=== PATIENT | female | born 1985 | race American Indian/Alaskan Native ===

== ENCOUNTER 2018-03-17 13:10 | Outpatient (CLI) | payer MEDICAID ==
[2018-03-17] MEDS ORDERED: LACTATED RINGERS 500 ML IV ONE (14:00)
[2018-03-17 14:23] LABS: Bacteria,Urine 3+ /HPF (Negative); Bilirubin,Urine NEG (Negative); Blood,Urine NEG (Negative); Color,Urine Yellow (Yellow); Mucus,Urine FEW /HPF; Protein,Urine <15 mg/dL mg/dL (Negative); Urobilinogen,Urine < 2.0 mg/dL (<2.0)
[2018-03-17] MEDS ORDERED: ROCEPHIN/NS 1 GM/50 ML 1 GM/50 ML BAG IV ONE (16:00)
--- NOTE | 2018-03-17 16:52 | Ultrasound Report ---
FINAL REPORT PROCEDURE: Ultrasound biophysical profile study TECHNIQUE: Sonographic evaluation for breathing, movement, tone, and amniotic fluid volume was performed. CPT 46925 HISTORY: PTL, TWINS. Evaluate biophysical profile.. COMPARISON: No prior studies are available for comparison. FINDINGS: Twin B heart rate of 145 beats per minute. Currently in transverse presentation head on the maternal left Amniotic fluid volume: Normal-score 2. At least one vertical pocket > 2 cm or more in vertical axis. breathing: Normal-score 2. movement: Normal-score 2. tone: Normal. Score: 8 of 8. IMPRESSION: Biophysical profile score twin B /8. heart rate 145 beats per minute. Transverse presentation head on the maternal left.
[2018-03-17] MEDS ORDERED: BRETHINE ONE (16:53)
--- NOTE | 2018-03-17 16:56 | Ultrasound Report ---
FINAL REPORT PROCEDURE: US OB BPP WO NON-STRESS TECHNIQUE: Sonographic evaluation for breathing, movement, tone, and amniotic fluid volume was performed. CPT 66334 HISTORY: PTL, TWINS COMPARISON: No prior studies are available for comparison. FINDINGS: Twin A breech presentation. Twin a presenting. heart rate of 149 beats per minute. Amniotic fluid volume: Normal-score 2. At least one vertical pocket > 2 cm or more in vertical axis. breathing: Normal-score 0. movement: Normal-score 2. tone: Normal. Score: 8 of 8. IMPRESSION: Biophysical profile score 6/8, score of 0 for breathing. Twin a breech presentation presenting. heart rate of 149 beats per minute is detected.
--- NOTE | 2018-03-17 17:03 | Ultrasound Report ---
FINAL REPORT PROCEDURE: US OB LIMITED TECHNIQUE: Real-time limited sonographic examination was performed for evaluation of cervix length for each fetus with image documentation (1 or more fetuses). CPT 52754 HISTORY: TWINS, PTL, CERVICAL LENGTH COMPARISON: No prior studies are available for comparison. FINDINGS: Cervix is visualized measuring 4.6 centimeters in length. At the time of this exam twin a was in breech presentation presenting with a heart rate of 138 beats per minute. Twin B transverse presentation head on the maternal left with a heart rate of 143 beats per minute. On image for and image 5 the internal cervical os appears clear without placenta previa. Further evaluation was neither requested nor performed. Detailed exam of the fetus was not performed. IMPRESSION: Cervix length 4.6 centimeter. Twin . Twin a presenting breech presentation, twin B transverse presentation head on the maternal left. Further evaluation was neither requested nor performed.
[2018-03-17 17:35] VITALS: BP 112/61
== END 2018-03-17 17:51 | disposition home or self-care (01) ==
LOC: TRG 13:10
PROVIDERS: ATTEND Obstetrics & Gynecology
DX: O47.03 False labor before 37 completed weeks of gestation, third trimester (principal); O10.013 Pre-existing essential hypertension complicating pregnancy, third trimester; Z3A.28 28 weeks gestation of pregnancy
CPT/HCPCS: 36415; 59025; 76815; 76819; 81001; 82731; 82962; 96360; 96361; 96372; J0696; J7120; J3105

== ENCOUNTER 2021-03-16 23:36 | Emergency (ER) | payer BC, MEDICAID ==
--- NOTE | 2021-03-17 00:21 | Emergency Department Report ---
Chief Complaint: Skin/Abscess/Foreign Body Stated Complaint: INSECT BITE Time Seen by Provider: 03/17/21 00:09 - HPI History of Present Illness: 35-year-old female patient presents to the emergency department with complaints of an insect bite to her right ankle starting a few weeks ago. Patient has been "digging at it" and applying Lotrimin + calamine lotion to the affected area. The affected area continues to feel irritated. Denies fever, chills, purulent drainage, proximal streaking erythema. Denies all other complaints at this time. - ROS Review of Systems: GENERAL: Negative for fever. CARDIOVASCULAR: Negative for chest pain. PULMONARY: Negative for shortness of breath. GASTROINTESTINAL: Negative for abdominal pain. MUSCULOSKELETAL: Negative for back pain. NEUROLOGICAL: Negative for headache. INTEGUMENTARY: Positive for skin lesion. - Exam Vital Signs: Vital Signs 03/16/21 23:57 Temperature 98 F Pulse Rate 92 H Respiratory 20 Rate Blood Pressure 148/92 [Right] O2 Sat by Pulse 99 Oximetry Physical Exam: General: Awake, appropriately interactive, no acute distress. Neck: Supple. Full range of motion intact. Cardiovascular: Normal peripheral perfusion. Pulmonary: No respiratory distress. Patient is speaking normally without use of accessory muscles. Skin: Round superficial abrasion to the medial aspect of the right ankle with excoriated tissue along the periphery. No fluctuance. No purulent drainage. No warmth or erythema. No necrosis. Neurological: No facial asymmetry. Speech is clear. Follows commands. Patient is alert and oriented. Musculoskeletal: Moves all four extremities spontaneously with normal range of motion. Psych: Cooperative. Appropriate mood and affect. MSE screening note: Focused history and physical exam performed. Due to findings the following was ordered: ED Medical Decision Making - Medical Decision Making Patient presents to emergency department with complaints of an insect bite to her right ankle for 3 weeks, unchanged today. She has attempted to debride the wound on her own at home and has applied a variety of topical creams with limited relief. Patient is afebrile, hemodynamically stable, ambulatory without assistance, no fluctuance or purulent drainage, no secondary cellulitis. No emergent medical condition identified on MSE. Patient has been advised to keep the affected area clean, discontinue antifungal medication, and allow the tissue to heal by itself. Strict return precautions provided. BILLING/CODING: This patient encounter does not represent a certified medical emergency. ED Disposition for [facility] Clinical Impression: Encounter for medical screening examination Disposition: 01 HOME / SELF CARE / HOMELESS Is pt being admited?: No Does the pt Need Aspirin: No Condition: Stable Instructions: Insect Bite, Adult, [id number] Additional Instructions: Take Tylenol every 4 hours as needed for pain. Use Benadryl as needed for itching. Keep wound clean. Allow the wound to heal on its own. Follow-up with primary care provider this week. Call tomorrow to schedule appointment. Return to the emergency department immediately for new or worsening symptoms. Referrals: JESSICA CORBETT MD [Staff Physician] - 3-5 Days Time of Disposition: 00:22
[2021-03-17 00:57] VITALS: BP 142/65
== END 2021-03-17 00:57 | disposition home or self-care (01) ==
LOC: ED 23:36
DX: T14.8XXA Other injury of unspecified body region, initial encounter (principal); W57.XXXA Bitten or stung by nonvenomous insect and other nonvenomous arthropods, initial encounter; Y93.89 Activity, other specified; Y92.89 Other specified places as the place of occurrence of the external cause; Y99.8 Other external cause status
CPT/HCPCS: 99282